=== PATIENT | male | born 1970 | race Caucasian/White ===

== ENCOUNTER 2017-11-29 15:17 | Inpatient (IN) | END 2017-12-01 16:00 | disposition home or self-care (01) | DRG 394 ==

== ENCOUNTER 2017-12-02 20:52 | Emergency (ER) | END 2017-12-03 01:04 | disposition home or self-care (01) ==

== ENCOUNTER 2018-03-13 17:41 | Emergency (ER) | END 2018-03-13 20:05 | disposition home or self-care (01) ==

== ENCOUNTER 2018-08-14 20:34 | Emergency (ER) | payer OTHER ==
[~2018-08-14] VITALS: Ht 152.4 cm; Wt 88.5 kg
[~2018-08-14 20:34] MED LIST: AMLO5TAB4 PO; PANT40SU PO
[2018-08-14 20:43] VITALS: Ht 152.4 cm; Wt 88.5 kg
[2018-08-15] MEDS ORDERED: morphine 4 MG/ML VIAL IV STA (01:18)
[2018-08-15] MEDS ORDERED: ONDANSETRON 4 MG INJ IV STA (01:18)
[2018-08-15] MEDS ORDERED: ASPIRIN 81 MG TAB PO ONE (01:30)
[2018-08-15] MEDS ORDERED: LISI30TA47 PO (02:33)
--- NOTE | 2018-08-15 05:36 | ERD ---
ER Documentation Chief Complaint Chief Complaint Central non-radiating CP "pressure", bilateral leg cramps X 12 hrs HPI This 47-year-old with nonradiating chest pain and pressure-like pain for the past 12 hours on and off. Mild mild associated shortness of breath. No fevers no chills. No other current complaints. Pain is mild to moderate intensity with no exacerbating or alleviating factors. ROS All systems reviewed and are negative except as per history of present illness. Medications Home Meds Active Scripts Pantoprazole Sodium (Protonix) 40 Mg Granpkt.dr, 40 MG PO DAILY, #14 Prov:DAVID ELAM MD 03/13/18 Reported Medications Lisinopril* (Lisinopril*) 30 Mg Tablet, 30 MG PO DAILY for 60 Days, #60 08/15/18 Discontinued Scripts Amlodipine Besylate* (Norvasc*) 5 Mg Tablet, 5 MG PO DAILY, #14 TAB Prov:DAVID ELAM MD 03/13/18 Allergies Allergies: Coded Allergies: No Known Allergy (Unverified , 08/15/18) PMhx/Soc Medical and Surgical Hx: pt denies Surgical Hx History of Surgery: No Anesthesia Reaction: No Hx Neurological Disorder: No Hx Respiratory Disorders: No Hx Cardiac Disorders: Yes (HTN) Hx Psychiatric Problems: No Hx Miscellaneous Medical Probl: Yes (GI bleed, hemorrhoids, anemia) Hx Alcohol Use: Yes (LAST WEEK, 8-9 [employer]) Hx Substance Use: No Hx Tobacco Use: No Smoking Status: Never smoker Physical Exam Vitals Vital Signs Date Temp Pulse Resp B/P (MAP) Pulse Ox O2 O2 Flow FiO2 Time Delivery Rate 08/15/18 60 19 145/85 100 Nasal 2.0 03:33 (105) Cannula 08/14/18 97.5 102 18 194/119 98 20:43 (144) Physical Exam Const: No acute distress Head: Atraumatic Eyes: Normal Conjunctiva ENT: Normal External Ears, Nose and Mouth. Neck: Full range of motion. No meningismus. Resp: Clear to auscultation bilaterally Cardio: Regular rate and rhythm, no murmurs Abd: Soft, non tender, non distended. Normal bowel sounds Skin: No petechiae or rashes Back: No midline or flank tenderness Ext: No cyanosis, or edema Neur: Awake and alert Psych: Normal Mood and Affect Result Diagram: 08/14/18 2350 08/14/18 2350 Results 24 hrs Laboratory Tests Test 08/14/18 23:50 White Blood Count 7.8 10^3/ul Red Blood Count 5.29 10^6/ul Hemoglobin 16.6 g/dl Hematocrit 48.7 % Mean Corpuscular Volume 92.1 fl Mean Corpuscular Hemoglobin 31.4 pg Mean Corpuscular Hemoglobin Concent 34.1 g/dl Red Cell Distribution Width 12.5 % Platelet Count 283 10^3/UL Mean Platelet Volume 9.3 fl Immature Granulocytes % 0.400 % Neutrophils % 68.7 % Lymphocytes % 19.2 % Monocytes % 10.3 % Eosinophils % 0.6 % Basophils % 0.8 % Nucleated Red Blood Cells % 0.0 /100WBC Immature Granulocytes # 0.030 10^3/ul Neutrophils # 5.3 10^3/ul Lymphocytes # 1.5 10^3/ul Monocytes # 0.8 10^3/ul Eosinophils # 0.1 10^3/ul Basophils # 0.1 10^3/ul Nucleated Red Blood Cells # 0.0 10^3/ul Sodium Level 140 mmol/L Potassium Level 3.9 mmol/L Chloride Level 102 mmol/L Carbon Dioxide Level 25 mmol/L Anion Gap 13 Blood Urea Nitrogen 15 mg/dl Creatinine 0.74 mg/dl Est Glomerular Filtrat Rate mL/min > 60 mL/min Glucose Level 100 mg/dl Calcium Level 10.0 mg/dl Total Bilirubin 0.9 mg/dl Direct Bilirubin 0.00 mg/dl Indirect Bilirubin 0.9 mg/dl Aspartate Amino Transf (AST/SGOT) 45 IU/L Alanine Aminotransferase (ALT/SGPT) 62 IU/L Alkaline Phosphatase 114 IU/L Troponin I < 0.012 ng/ml B-Type Natriuretic Peptide 26 PG/ML Total Protein 8.4 g/dl Albumin 4.8 g/dl Globulin 3.60 g/dl Albumin/Globulin Ratio 1.33 Current Medications Medications Dose Sig/Elizabet Start Time Status Last (Trade) Ordered Route PRN Stop Time Admin Dose Reason Admin Morphine 4 mg ONCE STAT 08/15/18 DC 08/15/18 Sulfate IV 01:18 08/15/18 01:29 (morphine) 01:19 Ondansetron 4 mg ONCE STAT 08/15/18 DC 08/15/18 HCl (Zofran IV 01:18 08/15/18 01:29 Inj) 01:19 Aspirin 324 mg ONCE ONCE 08/15/18 DC 08/15/18 (Aspirin) PO 01:30 08/15/18 01:29 01:31 Procedures/MDM EKG: Rate/Rhythm: [Normal Sinus Rhythm] QRS, ST, T-waves: [No changes consistent w/ acute ischemia] Impression: [No evidence of ischemia or arrhythmia] Chest X-ray 1V Interpreted by me: Soft Tissue: No acute abnormalities Bones: No acute abnormalities Mediastinum/Cardiac Silhouette/Lungs: [No acute abnormalities] Medical decision making: Patient's symptoms are concerning for cardiac cause will require inpatient workup and continuous monitoring. Further w/u for ischemia, arrhythmia, PE or dissection will be deferred to the inpatient team. Accepting Care Team: Current data and ongoing care discussed. Time: 4-year-old Primary Provider: Dr. Kumar Consulting: Deferred to inpatient team Outstanding Data: none Departure Diagnosis: Primary Impression: Chest pain Chest pain type: unspecified Qualified Codes: R07.9 - Chest pain, unspecified Condition: Serious NOEL JONES August 15, 2018 05:36
--- NOTE | 2018-08-15 06:44 | HP ---
Date/Time of Note Date/Time of Note DATE: 08/15/18 TIME: 06:41 Assessment/Plan VTE Prophylaxis Pharmacological prophylaxis: heparin Lines/Catheters IV Catheter Type (from Nrsg): Saline Lock Assessment/Plan Assessment/Plan 1. Chest pain: Likely demand ischemia from elevated blood pressure. Rule out ACS -Admit to telemetry unit -Supplemental oxygen, aspirin, beta-selina. As needed nitro -Serial troponin, 2D echo -Consider cardiology consult 2. Hypertensive urgency: BP not at goal. Adjust antihypertensive as needed 3. History of severe iron deficiency anemia in 2018: Secondary to hemorrhoidal bleeding -Patient no longer anemic Result Diagram: 08/14/18 2350 08/14/18 2350 Results 24hrs Laboratory Tests Test 08/14/18 23:50 08/15/18 05:47 White Blood Count 7.8 Red Blood Count 5.29 Hemoglobin 16.6 Hematocrit 48.7 Mean Corpuscular Volume 92.1 Mean Corpuscular Hemoglobin 31.4 Mean Corpuscular Hemoglobin Concent 34.1 Red Cell Distribution Width 12.5 Platelet Count 283 Mean Platelet Volume 9.3 Immature Granulocytes % 0.400 Neutrophils % 68.7 Lymphocytes % 19.2 Monocytes % 10.3 Eosinophils % 0.6 Basophils % 0.8 Nucleated Red Blood Cells % 0.0 Immature Granulocytes # 0.030 Neutrophils # 5.3 Lymphocytes # 1.5 Monocytes # 0.8 Eosinophils # 0.1 Basophils # 0.1 Nucleated Red Blood Cells # 0.0 Sodium Level 140 Potassium Level 3.9 Chloride Level 102 Carbon Dioxide Level 25 Anion Gap 13 Blood Urea Nitrogen 15 Creatinine 0.74 Est Glomerular Filtrat Rate mL/min > 60 Glucose Level 100 Calcium Level 10.0 Total Bilirubin 0.9 Direct Bilirubin 0.00 Indirect Bilirubin 0.9 Aspartate Amino Transf (AST/SGOT) 45 Alanine Aminotransferase (ALT/SGPT) 62 Alkaline Phosphatase 114 Troponin I < 0.012 < 0.012 B-Type Natriuretic Peptide 26 Total Protein 8.4 H Albumin 4.8 Globulin 3.60 H Albumin/Globulin Ratio 1.33 Creatine Kinase 205 H Creatine Kinase Index 0.6 Creatinine Kinase MB (Mass) 1.30 HPI/ROS Admit Date/Time Admit Date/Time Hx of Present Illness This is a 47-year-old male with a history of hypertension, iron deficiency anemia and hemorrhoidal bleeding who presents the ER complaining of pressure- like chest pain x 1 day. Also reported intermittent shortness of breath. When presented to the ER, blood pressure was 194/119. First troponin is negative and EKG without ST-T wave abnormalities. PMH/Family/Social Past Medical History Past Surgical Hx: other (HPI) Family History Significant Family History: no pertinent family hx Social History Alcohol Use: none Smoking Status: Never smoker Drug Use: none Exam Constitutional: alert, oriented, well developed Head: normocephalic, atraumatic Eyes: EOMI, PERRL Respiratory: clear to auscultation, normal air movement Cardiovascular: regular rate and rhythm, nl pulses Gastrointestinal: soft, other (Right lower quadrant tenderness elicited on palpation. Patient also with right flank pain) Extremities: normal pulses Coded Allergies: No Known Allergy (Unverified , 08/15/18) Past Surgical History Past Surgical Hx: no surgical history Family History Significant Family History: no pertinent family hx Social History Smoking Status: Never smoker Exam/Review of Systems Vital Signs Vitals Vital Signs Date Temp Pulse Resp B/P (MAP) Pulse Ox O2 O2 Flow FiO2 Time Delivery Rate 08/15/18 55 16 168/99 100 Nasal 2.0 05:36 (122) Cannula 08/14/18 97.5 20:43 NOEL CLEMENS MD August 15, 2018 06:44
[2018-08-15] MEDS ORDERED: NITROGLYCERIN (SL) 0.4 MG TAB SL PRN (07:00)
[2018-08-15] MEDS ORDERED: ALBUTEROL/IPRATROPIUM (NEB) 3 ML AMP HHN PRN (07:00)
[2018-08-15] MEDS ORDERED: NACL 0.9% 3 ML SYG IV SCH (07:00)
[2018-08-15] MEDS ORDERED: ACETAMINOPHEN 325 MG TAB PO PRN (07:00)
[2018-08-15] MEDS ORDERED: ONDANSETRON 4 MG INJ IV PRN (07:00)
[2018-08-15] MEDS ORDERED: ASPIRIN 81 MG TAB PO SCH (09:00)
[2018-08-15] MEDS ORDERED: LISINOPRIL 10 MG TAB PO SCH (09:00)
[2018-08-15] MEDS ORDERED: PANTOPRAZOLE (EC) 40 MG TAB PO SCH (09:00)
[2018-08-15] MEDS ORDERED: NON-FORMULARY/PATIENT OWN MED (Pantoprazole Sodium (Protonix) 40 MG) PO SCH (09:00)
--- NOTE | 2018-08-15 14:15 | DS ---
Date/Time of Note Date/Time of Note DATE: 08/15/18 TIME: 14:08 Discharge Summary Admission/Discharge Info Admit Date/Time Discharge Date/Time Discharge Diagnosis 1. Chest pain, likely GERD related, resolved, on protonix 2. HTN, improved, on lisinopril Patient Condition: Stable Hospital Course 47 years old male with HTN started retrosternal chest pain at 11 pm last night. It was intermittent, pressure like that he feels the pressure comes from the stomach and pushed up. No nausea or vomiting. Chest pain resolved this morning around 9am. Physical exam unremarkable except that his blood pressure was 194/119. Troponin negative. ECG unremarkable. The chest pain is considered either hypertension related or GI related. Blood pressure is well controlled today. I will have him follow up with his PCP in one week and he is instructed to come back to h=ospital if chest pain recurs. Home Meds Active Scripts Pantoprazole Sodium (Protonix) 40 Mg [place]., 40 MG PO DAILY, #14 Prov:DAVID ELAM MD 03/13/18 Reported Medications Lisinopril* (Lisinopril*) 30 Mg Tablet, 30 MG PO DAILY for 60 Days, #60 08/15/18 Discontinued Scripts Amlodipine Besylate* (Norvasc*) 5 Mg Tablet, 5 MG PO DAILY, #14 TAB Prov:DAVID ELAM MD 03/13/18 Follow-up Plan PCP in [facility] Primary Care Provider Care Physician No Primary Pending Labs Laboratory Tests Test 08/14/18 23:50 08/15/18 05:47 08/15/18 07:28 08/15/18 11:50 White Blood 7.8 4.9 Count 10^3/ul (4.8-10 10^3/ul (4.8-1 .8) 0.8) Red Blood 5.29 5.25 Count 10^6/ul (4.70-6 10^6/ul (4.70- .10) 6.10) Hemoglobin 16.6 16.5 g/dl (14.0-18.0 g/dl (14.0-18. ) 0) Hematocrit 48.7 48.7 % (42.0-52.0) % (42.0-52.0) Mean 92.1 92.8 Corpuscular fl (82.0-101.0) fl (82.0-101.0 Volume ) Mean 31.4 31.4 Corpuscular pg (29.0-33.0) pg (29.0-33.0) Hemoglobin Mean 34.1 33.9 Corpuscular g/dl (32.0-37.0 g/dl (32.0-37. Hemoglobin Conc ) 0) ent Red Cell 12.5 12.4 Distribution % (11.5-14.5) % (11.5-14.5) Width Platelet Count 283 251 10^3/UL (140-41 10^3/UL (140-4 5) 15) Mean Platelet 9.3 9.3 Volume fl (7.4-10.4) fl (7.4-10.4) Immature 0.400 0.600 Granulocytes % % (0.001-0.429) % (0.001-0.429 ) Neutrophils % 68.7 50.4 % (39.0-77.0) % (39.0-77.0) Lymphocytes % 19.2 33.7 % (15.0-51.0) % (15.0-51.0) Monocytes % 10.3 12.6 % (0.0-11.0) % (0.0-11.0) Eosinophils % 0.6 % (0.0-7.0) 1.9 % (0.0-7.0) Basophils % 0.8 % (0.0-2.0) 0.8 % (0.0-2.0) Nucleated Red 0.0 0.0 Blood Cells % /100WBC (0.0-0. /100WBC (0.0-0 0) .0) Immature 0.030 0.030 Granulocytes # 10^3/ul (0.0-0. 10^3/ul (0.0-0 031) .031) Neutrophils # 5.3 2.5 10^3/ul (1.6-7. 10^3/ul (1.6-7 5) .5) Lymphocytes # 1.5 1.6 10^3/ul (0.8-2. 10^3/ul (0.8-2 9) .9) Monocytes # 0.8 0.6 10^3/ul (0.3-0. 10^3/ul (0.3-0 9) .9) Eosinophils # 0.1 0.1 10^3/ul (0.0-0. 10^3/ul (0.0-0 5) .5) Basophils # 0.1 0.0 10^3/ul (0.0-0. 10^3/ul (0.0-0 1) .1) Nucleated Red 0.0 0.0 Blood Cells # 10^3/ul (0.0-0. 10^3/ul (0.0-0 0) .0) Sodium Level 140 140 mmol/L (135-144 mmol/L (135-14 ) 4) Potassium 3.9 4.1 Level mmol/L (3.5-5.1 mmol/L (3.5-5. ) 1) Chloride Level 102 102 mmol/L (97-110) mmol/L (97-110 ) Carbon Dioxide 25 28 Level mmol/L (21-31) mmol/L (21-31) Anion Gap 13 (5-13) 10 (5-13) Blood Urea 15 mg/dl (7-20) 15 Nitrogen mg/dl (7-20) Creatinine 0.74 0.75 mg/dl (0.61-1.2 mg/dl (0.61-1. 4) 24) Est Glomerular > 60 > 60 Filtrat mL/min (>60) mL/min (>60) Rate mL/min Glucose Level 100 97 mg/dl (70-220) mg/dl (70-220) Calcium Level 10.0 9.6 mg/dl (8.4-10.2 mg/dl (8.4-10. ) 2) Total 0.9 1.2 Bilirubin mg/dl (0.2-1.3) mg/dl (0.2-1.3 ) Direct 0.00 0.00 Bilirubin mg/dl (0.00-0.2 mg/dl (0.00-0. 0) 20) Indirect 0.9 1.2 Bilirubin mg/dl (0-1.1) mg/dl (0-1.1) Aspartate Amino 45 IU/L (15-46) 44 Transf (AST/SGO IU/L (15-46) T) Alanine 62 IU/L (13-69) 62 Aminotransferas IU/L (13-69) e (ALT/SGPT) Alkaline 114 97 Phosphatase IU/L (42-121) IU/L (42-121) Troponin I < 0.012 < 0.012 < 0.012 ng/ml (0.000-0. ng/ml (0.000-0 ng/ml (0.000-0 120) .120) .120) B-Type 26 Natriuretic PG/ML (0-125) Peptide Total Protein 8.4 7.8 g/dl (6.1-8.1) g/dl (6.1-8.1) Albumin 4.8 4.5 g/dl (3.3-4.9) g/dl (3.3-4.9) Globulin 3.60 3.30 g/dl (1.3-3.2) g/dl (1.3-3.2) Albumin/Globuli 1.33 1.36 n Ratio Creatine 205 169 Kinase IU/L (23-200) IU/L (23-200) Creatine Kinase 0.6 0.7 Index Creatinine 1.30 1.23 Kinase MB ng/ml (0.0-2.4 ng/ml (0.0-2.4 (Mass) ) ) Hemoglobin A1c 5.2 % (0-5.9) Triglycerides 181 Level mg/dl (0-149) Cholesterol 218 Level mg/dl (100-200 ) LDL 98 mg/dl Cholesterol, Calculated HDL 84 Cholesterol mg/dl (27-67) Cholesterol/HDL 2.5 RATIO Ratio Thyroid 2.510 Stimulating MIU/L (0.465-4 Hormone (TSH) .680) CARLOS ROMO MD August 15, 2018 14:15
[2018-08-15 14:41] VITALS: BP 180/77; PULSE 75; RESP 17
== END 2018-08-15 14:41 | disposition home or self-care (01) ==
LOC: E/R 20:34 → CANRESERV 08-15 10:16 → E/R 08-15 14:41
DX: R07.9 Chest pain, unspecified (principal); I10 Essential (primary) hypertension; R40.2142 Coma scale, eyes open, spontaneous, at arrival to emergency department; R40.2252 Coma scale, best verbal response, oriented, at arrival to emergency department; R40.2362 Coma scale, best motor response, obeys commands, at arrival to emergency department
CPT/HCPCS: 36415; 71045; 80053; 80061; 82550; 82553; 83036; 83880; 84443; 84484; 85025; 93005; 96374; 96375; J2270; J2405; Z7502; Z7610